=== PATIENT | male | born 1990 | race American Indian/Alaskan Native ===

== ENCOUNTER 2018-08-08 03:40 | Emergency (ER) | payer SELFPAY ==
[2018-08-08 03:49] VITALS: BP 126/85
[2018-08-08] MEDS ORDERED: ZITHROMAX PO ONE (03:58)
[2018-08-08] MEDS ORDERED: XYLOCAINE 1% MPF 5 mL INFILTRATI ONE (03:58)
[2018-08-08] MEDS ORDERED: ROCEPHIN IM ONE (03:58)
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
[2018-08-08 04:36] LABS: Bacteria,Urine 2+ /HPF (Negative); Bilirubin,Urine NEG (Negative); Blood,Urine NEG (Negative); Color,Urine Yellow (Yellow); Mucus,Urine FEW /HPF
[2018-08-08 04:53] LABS: WBC,Urine > 182.0 /HPF (0.0-6.0)
== END 2018-08-08 04:49 | disposition home or self-care (01) ==
LOC: ED 03:40
DX: R36.9 Urethral discharge, unspecified (principal); F17.200 Nicotine dependence, unspecified, uncomplicated; Z20.2 Contact with and (suspected) exposure to infections with a predominantly sexual mode of transmission; Z98.890 Other specified postprocedural states
CPT/HCPCS: 81001; 87591; 96372; 99283; J0696